=== PATIENT | male | born 1995 | race Caucasian/White ===

== ENCOUNTER 2021-02-22 16:29 | Emergency (ER) | payer OTHER, SELFPAY ==
[2021-02-22 16:41] VITALS: BP 152/64; PULSE 83; RESP 18; TEMP 37; O2SAT 100; BMI 36.0
--- NOTE | 2021-02-22 17:59 | ED_ITS ---
HPI - Back Pain/Injury General: Chief Complaint: Back Pain/Injury Stated Complaint: Lower Back Pain Time Seen by Provider: 02/22/21 17:59 History of Present Illness: HPI Narrative: 25-year-old male patient comes in today with low back pain. Patient reports that on Saturday he had gone gagging and had twisted wrong causing him increased pain and discomfort. 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 Patient appears well. Patient denies any problems with urination or bowel movements. Patient does have some difficulty with getting in and out of bed and getting up from the chair. Patient denies any fever or other medical issues. Review of Systems General: Reports: 10 or more systems reviewed and unremarkable except in HPI and below Musc: Reports: back pain Physical Exam Const: COMMON NORMALS: no acute distress and patient oriented x3 GENERAL APPEARANCE: cooperative HENMT: COMMON NORMALS: normocephalic HEAD & SCALP: normal to inspection and normocephalic Eye: GENERAL EYE: appearance normal, both eyes and all related structures Neck/C-Spine: COMMON NORMALS: full ROM Chest: COMMONS NORMALS: normal inspection of the chest Resp: COMMON NORMALS: normal respiratory effort EFFORT & INSPECTION: Yes able to speak in complete sentences Cardio: COMMON NORMALS: regular rate and regular rhythm RATE: regular rate RHYTHM: regular rhythm GI: COMMON NORMALS: non-tender Back/Pelvis: THORACIC SPINE/UPPER BACK: Yes normal to inspection LUMBAR SPINE/LOWER BACK: Yes paraspinal muscle tenderness Lumbar paraspinal muscle tenderness: bilateral, Yes paraspinal muscle spasm Lumbar paraspinal muscle s pasm: right and Yes straight leg raise positive left Straight leg raise positive details left: at 50 degrees Extremity: COMMON NORMALS: normal to inspection Neuro: COMMON NORMALS: patient oriented x3 and moves all extremities Psych: COMMON NORMALS: mental status grossly normal and cooperative Skin: COMMON NORMALS: no rashes or lesions noted GENERAL SKIN EXAM: no rashes or lesions noted Course Vital Signs: Vital signs: Vital Signs Temperature 98.6 F 02/22/21 16:41 Pulse Rate 83 02/22/21 16:41 Respiratory Rate 18 02/22/21 16:41 Blood Pressure 152/64 02/22/21 16:41 Pulse Oximetry 100 02/22/21 16:41 MDM - Back Pain/Injury MDM Narrative: Medical decision making narrative: Patient comes in today with complaints of low back pain after getting 2 or 3 days ago. Patient denies any falls. Patient reports he injured himself when he was throwing differently than normal. On exam patient has some muscle tenderness in his lumbar area bilaterally. Patient does have a muscle spasm on the left lower back. No midline tenderness is noted. Patient denies any changes in bowel or bladder habits and no problems with fever. Differential diagnosis includes but not limited to intervertebral disc disease, lumbar strain, facet arthropathy. No sign of systemic illness is noted. No sign of cauda equina and is noted at this time. Reviewed exam with patient recommended treatment to include increasing activity and the use of anti-inflammatories and mild muscle relaxant. Encourage plenty of fluids of medicine and follow-up with primary care. Discharge Plan Discharge Patient Disposition: Home Clinical Impression: Strain of lumbar region Qualifiers: Encounter type: initial encounter Qualified Code(s): S39.012A - Strain of muscle, fascia and tendon of lower back, initial encounter Condition: Stable Prescriptions: New prednisone 20 mg tablet 20 mg PO BID 5 Days Qty: 10 RF: 0 tizanidine 4 mg tablet 4 mg PO Q8H PRN (Reason: muscle spasticity, pain) Qty: 14 RF: 0 Discharge Orders: Discharge ED (Routine); Ordered 02/22/21 Ordered By: Solitario Alcantara Discharge Diet: Usual diet Discharge Activity: Increase activity as tolerated Patient Instructions: Low Back Strain (ED), Core Strengthening Exercises (GEN), Opioid Safety Activity Restrictions/Additional Instructions: Increase activity as tolerated. It is important to return to normal activity as much as possible. Use acetaminophen or ibuprofen for pain. Take prednisone as directed 20 mg twice a day for the next 5 days. The prednisone is to help decrease inflammation along the nerve pathways. Use tizanidine 4 mg 1 every 8 hours as needed for muscle spasms and increased pain. Drink plenty of water with medications. Follow-up with primary care on Saturday if no improvement in symptoms. Return to the ER for high fever, loss of bowel or bladder control, or new concerns. 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
[2021-02-22] MEDS: ketorolac 30 mg/mL INJ IM (18:29)
[2021-02-22] MEDS: orphenadrine 30 mg/mL Inj 2 mL 60 MG IM (18:29)
== END 2021-02-22 18:39 | disposition home or self-care (01) ==
PROVIDERS: Emergency Provider Nurse Practitioner Family
DX: S39.012A Strain of muscle, fascia and tendon of lower back, initial encounter (principal); X50.1XXA Overexertion from prolonged static or awkward postures, initial encounter
CPT/HCPCS: 96372; 99283; J1885; J2360

== ENCOUNTER → 2022-01-03 14:20 | Outpatient (BNVA) | payer OTHER, SELFPAY | PROVIDERS: Visit Provider Nurse Practitioner | DX: I10 Essential (primary) hypertension (principal); M10.9 Gout, unspecified; Z79.899 Other long term (current) drug therapy | CPT/HCPCS: 80053 ==

== ENCOUNTER → 2023-09-10 09:45 | Outpatient (BNVA) | payer OTHER, SELFPAY | PROVIDERS: PCP Nurse Practitioner Family; Visit Provider Nurse Practitioner Family | DX: M10.9 Gout, unspecified (principal) | CPT/HCPCS: 80053; 84550; 85025 ==

== ENCOUNTER 2023-10-18 11:07 | Outpatient (CLI) | payer OTHER, SELFPAY ==
[2023-10-18 11:33] LABS: PH Semen 7.5 (7.0-8.0); Volume Semen 2.5 mL (2-5)
[2023-10-18 11:34] LABS: Sperm Non-Progressive Motility 0 % (5-10); Sperm Progressive Motility 50 % (31-34); Viscosity Semen Normal
[2023-10-18 11:35] LABS: Sperm Immotility 50 % (50-60)
[2023-10-18 11:50] LABS: Sperm Count 21.8 mill/mL (40-160)
[2023-10-18 11:51] LABS: Pathology Referral Yes
== END 2023-10-18 11:08 | disposition home or self-care (01) ==
LOC: RAD 11:10
PROVIDERS: PCP Nurse Practitioner Family; Visit Provider Obstetrics & Gynecology Reproductive Endocrinology
DX: Z01.89 Encounter for other specified special examinations (principal)
CPT/HCPCS: 80503; 89320

== ENCOUNTER → 2023-10-29 15:05 | Outpatient (BNVA) | payer OTHER, SELFPAY | PROVIDERS: PCP Nurse Practitioner Family; Visit Provider Nurse Practitioner Family | DX: S80.02XA Contusion of left knee, initial encounter (principal); M25.562 Pain in left knee; X58.XXXA Exposure to other specified factors, initial encounter | CPT/HCPCS: 73562 ==

== ENCOUNTER 2023-11-06 12:12 | Outpatient (CLI) | payer OTHER, SELFPAY ==
--- NOTE | 2023-11-06 13:00 | MR_ITS ---
WS: [id number] MRI LEFT KNEE NONCONTRAST TECHNIQUE: Axial PD, coronal PD fat sat, coronal PD, sagittal PD, and sagittal PD fat-sat images obta ined. CLINICAL INFORMATION: M65.80 - Other synovitis and tenosynovitis, unspecified site COMPARISON: None. FINDINGS: Prepatellar soft tissue edema. Normal medial and lateral patellar retinaculum. Focal edema in the fatima perior pole of the patella at the lateral quadriceps insertion suspicious for small avulsion fracture in this location with tiny insertional quadriceps tear. Edema and cortical irregularity involving th e anterior patella at the quadriceps insertion site. Ossified fragments in this location on the prior radiograph. Recommend correlation with area of injury and anterior patella pain. Irregularity and sl ight retraction of the lateral insertion of the quadriceps tendon. Normal patellar tendon. Normal ACL and PCL. Normal medial and lateral meniscus. No acute appearing me niscal tears. Fibula head is normal in appearance. Normal medial and lateral collateral ligaments. No rmal popliteal fossa. MR/MR knee LT wo con* [id number] IMPRESSION: 1. Suspected bony avulsion involving the anterior patella at the lateral quadr iceps insertion suspicious for avulsion fracture with small insertional tear. A ssociated edema in the anterior patella. This corresponds to the ossified fragm ents on the prior radiograph. 2. ACL and PCL are intact. 3. No acute appearing meniscal tears. 4. Normal patella tendon. 5. No other acute findings. Outbridge grading: grade I: focal areas of hyperintensity with normal contour
== END 2023-11-06 12:13 | disposition home or self-care (01) ==
PROVIDERS: PCP Nurse Practitioner Family; Visit Provider Nurse Practitioner Family
DX: M65.862 Other synovitis and tenosynovitis, left lower leg (principal); R60.0 Localized edema
CPT/HCPCS: 73721

== ENCOUNTER → 2023-11-14 14:42 | Outpatient (BNVA) | payer OTHER, SELFPAY | PROVIDERS: PCP Nurse Practitioner Family; Referring Provider Nurse Practitioner Family; Visit Provider Orthopaedic Surgery | DX: M25.562 Pain in left knee; S80.02XA Contusion of left knee, initial encounter; X58.XXXA Exposure to other specified factors, initial encounter | CPT/HCPCS: 73560; 73565 ==